=== PATIENT | female | born 1955 | race Caucasian/White ===

== ENCOUNTER 2017-01-19 | Outpatient (CLI) | payer BC | END 2017-01-19 13:18 | disposition home or self-care (01) ==

== ENCOUNTER 2017-04-16 13:38 | Outpatient (CLI) | payer BC ==
--- NOTE | 2017-04-17 12:28 | DEXA Report ---
DEXA SCAN: 04/16/2017 CLINICAL INDICATION: Postmenopausal. TECHNIQUE: Dual energy x-ray absorptiometry (DXA) was performed on a [employer] system. Regions measured are the AP spine, femoral neck, and, if needed, forearm. COMPARISON: None. In accordance with the International Society for Clinical Densitometry (ISCD) guidelines, data from previous exams may be reanalyzed using current recommendations and techniques. This is done to allow a more accurate basis for comparison with the current study. FINDINGS: The data for the lumbar spine is as follows: REGION BMD (g/cm/cm) T-SCORE Z-SCORE L1 1.890 -2.0 -1.2 L2 1.040 -1.3 -0.5 L3 1.025 -1.5 -0.7 L4 0.987 -1.8 -1.0 TOTAL 0.987 -1.6 -0.8 NOTE: All evaluable vertebrae are used for classification. The data for the hip is as follows: REGION BMD (g/cm/cm) T-SCORE Z-SCORE Neck 0.782 -1.8 -0.9 TOTAL 0.930 -0.6 0.0 NOTE: The femoral neck or total proximal femur, whichever is lowest, is used for classification. IMPRESSION: THE WHO CLASSIFICATION BASED ON THE INTERNATIONAL REFERENCE STANDARD IS OSTEOPENIA. THE FRACTURE RISK IS INCREASED. RECOMMENDATION: Patients with diagnosis of osteoporosis or osteopenia should have regular bone mineral density assessment. For those eligible for Medicare, routine testing is allowed once every 2 years. Testing frequency can be increased for patients who have rapidly progressing disease or for those who are receiving medical therapy to restore bone mass. COMMENT: World Health Organization (WHO) definitions for osteoporosis and osteopenia: NORMAL BMD: T-score at -1.0 or higher, fracture risk is low. OSTEOPENIA BMD: T-score between -1.0 and -2.5, fracture risk is increased. OSTEOPOROSIS BMD: T-score at -2.5 or lower, fracture risk high. National Osteoporosis Foundation recommends: 1. Obtain adequate dietary calcium (at least 1200 mg per day) and vitamin D (400 -800 international units per day). 2. Participate, as appropriate, in regular weightbearing and muscle- strengthening exercise. 3. Avoid tobacco use and reduce alcohol and caffeine intake. 4. For more detailed information see the website at www.NOF.org. MTDD
== END 2017-04-16 13:39 | disposition home or self-care (01) ==
LOC: DI 13:38
PROVIDERS: ATTEND Naturopath
DX: M85.89 Other specified disorders of bone density and structure, multiple sites (principal)
CPT/HCPCS: 77080

== ENCOUNTER 2017-11-26 07:16 | Emergency (ER) | payer BC ==
[2017-11-26 07:27] VITALS: BP 150/92
--- NOTE | 2017-11-26 07:39 | ED Physician Documentation ---
PD HPI URI - Stated complaint Stated Complaint: BODYACHES - Chief complaint Chief Complaint: Resp - History obtained from History obtained from: Patient - History of Present Illness Timing - onset: How many days ago (4) Timing duration: Days (4) Timing details: Gradual onset, Still present Associated symptoms: Fever, Chills, Nasal congestion, Sore throat, Productive cough. No: Chest pain, Dyspnea, NVD Contributing factors: Sick contact (was visiting grandchildren in [place] and they had colds. Then she was in airport travel so exposure there. Returned a week ago and was sick starting 2-3 days after return.), Travel. No: Immunocompromised, COPD / asthma Similar symptoms before: Has not had sx before Recently seen: Not recently seen Review of Systems Constitutional: reports: Fever, Chills, Myalgias Nose: reports: Rhinorrhea / runny nose, Congestion Throat: reports: Sore throat Cardiac: denies: Chest pain / pressure, Palpitations Respiratory: reports: Cough. denies: Dyspnea, Wheezing PD PAST MEDICAL HISTORY - Past Medical History Cardiovascular: Hypertension Endocrine/Autoimmune: HyPOthyroidism Musculoskeletal: Fibromyalgia - Past Surgical History Past Surgical History: Yes General: Cholecystectomy, EGD, Other Ortho: Spine surgery /[employer]IDENTIAL DESIGNER: Hysterectomy - Present Medications Home Medications: Ambulatory Orders Medication Instructions Recorded Confirmed Albuterol Sulf [Ventolin Hfa 1 - 2 puffs INH Q4HR PRN #1 inhaler 11/26/17 Inhaler] Azithromycin [Zithromax] 250 mg PO DAILY #6 tablet 11/26/17 Dexamethasone [Decadron] 4 mg PO DAILY #5 tablet 11/26/17 Gabapentin 1 cap PO BID 11/26/17 11/26/17 Pindolol 1 tab PO DAILY 11/26/17 11/26/17 Thyroid,Pork [[place] Thyroid] 1 tab PO DAILY 11/26/17 11/26/17 Venlafaxine ER [Effexor ER] 1 cap PO DAILY 11/26/17 11/26/17 guaiFENesin/CODEINE [Robitussin AC] 10 ml PO Q6H PRN #240 ml 11/26/17 - Allergies Allergies/Adverse Reactions: Allergies Allergy/AdvReac Type Severity Reaction Status Date / Time adhesive tape AdvReac Rash Verified 11/26/17 07:28 - Social History Does the pt smoke?: No Smoking Status: Never smoker Does the pt drink ETOH?: Yes Does the pt have substance abuse?: No Substance Use and Type: Marijuana - Immunizations Immunizations are current?: Yes - POLST Patient has POLST: No PD ED PE NORMAL - Vitals Vital signs reviewed: Yes - General General: Alert and oriented X 3, No acute distress, Well developed/nourished - HEENT HEENT: Ears normal, Pharynx benign - Neck Neck: Supple, no meningeal sign, No adenopathy - Cardiac Cardiac: RRR, No murmur - Respiratory Respiratory: Clear bilaterally - Abdomen Abdomen: Soft, Non tender - Derm Derm: Normal color, Warm and dry - Extremities Extremities: No deformity, No tenderness to palpate, No edema, No calf tenderness / cord - Neuro Neuro: Alert and oriented X 3, No motor deficit, Normal speech Results - Vitals Vitals: Oxygen O2 Source Room air PD MEDICAL DECISION MAKING - ED course Complexity details: considered differential, d/w patient Departure - Departure Disposition: Home, Self Care Clinical Impression: Upper respiratory infection Qualifiers: URI type: unspecified URI Qualified Code(s): J06.9 - Acute upper respiratory infection, unspecified Condition: Stable Record reviewed to determine appropriate education?: Yes Instructions: ED Upper Resp Infec No Abx Tx Follow-Up: Rich Nunez, [place] [Primary Care Provider] - Prescriptions: Albuterol Sulf [Ventolin Hfa Inhaler] 1 - 2 puffs INH Q4HR PRN #1 inhaler PRN Reason: Shortness Of Air/Wheezing Azithromycin [Zithromax] 250 mg PO DAILY #6 tablet Dexamethasone [Decadron] 4 mg PO DAILY #5 tablet guaiFENesin/CODEINE [Robitussin AC] 10 ml PO Q6H PRN #240 ml PRN Reason: Cough Comments: Illnesses like this are typically viral. As such we focused treatment on symptoms predominantly. Use albuterol inhaler 2 puffs 4 times a day to help with breathing and decreased cough. Decadron daily for inflammation of the airways. Add cough medicine if needed for decreasing the amount of cough. Drink lots of fluids. Tylenol if needed for fevers and aches. If this persists few more days or has increasing symptoms, then consider potential bacterial and add the azithromycin antibiotic at that point. Otherwise likely to taper down symptoms over the next few days. He may have a persistent cough for several weeks. Discharge Date/Time: 11/26/17 08:15
[2017-11-26] MEDS ORDERED: BENZONATATE 100 MG CAPSULE PO STA (08:03)
[2017-11-26] MEDS ORDERED: DEXAMETHASONE 10 MG/ML VIAL PO STA (08:03)
== END 2017-11-26 08:15 | disposition home or self-care (01) ==
LOC: ED 07:16
DX: J06.9 Acute upper respiratory infection, unspecified (principal); I10 Essential (primary) hypertension; E03.9 Hypothyroidism, unspecified
CPT/HCPCS: 99283; A9270

== ENCOUNTER 2019-06-28 10:39 | Outpatient (CLI) | payer SELFPAY | END 2019-06-28 10:40 | disposition home or self-care (01) | LOC: LAB 10:39 | DX: Z01.89 Encounter for other specified special examinations (principal) | CPT/HCPCS: 36415 ==

== ENCOUNTER 2020-01-05 10:48 | Outpatient (CLI) | payer MEDICARE | END 2020-01-05 10:49 | disposition home or self-care (01) | LOC: LAB.S 10:48 | PROVIDERS: ATTEND Internal Medicine | DX: E03.9 Hypothyroidism, unspecified (principal) | CPT/HCPCS: 36415; 84443 ==